=== PATIENT | male | born 1940 | race Caucasian/White ===

== ENCOUNTER 2024-09-02 08:18 | Day surgery (SDC) | payer MEDICARE, SELFPAY ==
[2024-08-28 14:55] VITALS: BMI 27.8
[2024-09-02] VITALS (8 sets, daily range): BP systolic 126–156; BP diastolic 80–96; PULSE 77–110; RESP 10–93; TEMP 36.3–36.8; O2SAT 4–95; BMI 27.8
[2024-09-02] MEDS: ACETAMINOPHEN 325 MG TABLET 650 MG PO (09:15)
[2024-09-02] MEDS: LACTATED RINGERS 1,000 ML 42 ML IV (09:16)
--- NOTE | 2024-09-02 09:48 | PM.HP.1 ---
History of Present Illness History of Present Illness Date Patient Seen: 08/26/24 Time Patient Seen: 09:49 Chief complaint: Open umbilical hernia repair w/mesh Narrative: Aleksey is an 84-year-old man with a symptomatic umbilical hernia. See the prior office notes for details. [facility] Medical History (Updated 08/28/24 @ 15:25 by Irasema Durbin RN) History of COVID-19 (07/09/24) Vertigo Unspecified hearing loss, bilateral Hypoglycemia, unspecified Insomnia Personal history of tuberculosis Hyperlipemia Benign prostatic hyperplasia without lower urinary tract symptoms Spinal stenosis (1979) Surgical History (Updated 08/28/24 @ 15:23 by Irasema Durbin RN) Hx of hernia repair Social History household members: spouse Smoking Status: Never smoker alcohol intake: former Meds Home Medications and Allergies Home Medications Medication Instructions Recorded Confirmed Type cholecalciferol (vitamin D3) 25 25 mcg PO DAILY 07/10/22 07/02/24 History mcg (1,000 unit) capsule vitamin A palmitate 7,500 mcg 7,500 mcg PO DAILY 07/10/22 07/02/24 History (25,000 unit) capsule vitamin E mixed 100 unit tablet 100 unit PO DAILY 07/10/22 07/02/24 History zolpidem 10 mg tablet 5 mg PO BEDTIME 07/10/22 09/02/24 History metronidazole 0.75 % topical gel 1 applic topical BEDTIME 07/02/24 07/02/24 History Allergies Allergy/AdvReac Type Severity Reaction Status Date / Time prednisone Allergy Verified 09/02/24 08:45 Exam Vital Signs (past 8 hours): - 09/02/24 09:09 Temperature 98.3 F Pulse Rate 105 H Respiratory Rate 10 L Blood Pressure 153/96 H Pulse Oximetry 94 Oxygen Delivery Method Room Air Oxygen Delivery Method Room Air Const General: No acute distress Assessment & Plan Assessment and plan (1) Umbilical hernia without mention of obstruction or gangrene: Qualifiers: Obstruction and gangrene presence: without obstruction or gangrene Qualified Code(s): K42.9 - Umbilical hernia without obstruction or gangrene Status: Acute Plan Open umbilical hernia repair with mesh Time-Based Coding :: [TOTAL MINUTES] spent with patient and on the chart (including review of chart, obtaining history, exam, reviewing outside data, placing orders, documenting exam and treatment plan, and counseling patient) on [DATE].
--- NOTE | 2024-09-02 09:57 | SUR.OPER ---
Supine on padded OR bed, head on pillow, arms secured on padded arm boards at <90 degrees abduction, legs uncrossed, safety belt at thigh, tape over blanket over lower legs.
[2024-09-02] MEDS: CEFAZOLIN 2 GM/100 ML PREMIX 100 ML IV (10:20)
[2024-09-02] MEDS: BUPIVACAINE 0.5% W/ EPI (PF) 30 ML VIAL INJ (10:28)
--- NOTE | 2024-09-02 11:21 | PM.OP.1 ---
Operative Date/Time/Diagnoses Date of procedure: 09/02/24 Time of procedure: 11:22 Pre-op diagnosis: Umbilical hernia Post-op diagnosis: same Procedure & Clinicians Procedure: Open umbilical hernia repair with mesh Same procedure as scheduled: Yes Surgeon: Kev Durand Anesthesia Type: General Operative Notes Procedure in detail: Ancef was administered. The patient was brought to the operating room, placed on the table in the supine position and general anesthesia was induced. The abdomen was prepped and draped in the usual fashion. A time-out was performed. A 6 cm curvilinear incision was made inferior to the umbilicus. The hernia sac was dissected free from the surrounding subcutaneous adipose tissue and off the umbilical skin using a combination of cautery, sharp and blunt dissection. The hernia sac was dissected free from the fascial ring and allowed to drop back down into the abdomen. The fascial defect was about 4 cm in diameter. The fascial edge was cleared of fibrofatty tissue. The fascia was then closed transversely with multiple interrupted 0 Ethibond sutures. The subcutaneous adipose tissue was cleared off of the anterior sheath circumferentially about 2 cm in each direction. A piece of polypropylene mesh was trimmed to fit over the fascial closure and secured with Tisseel. Once the Tisseel was dried the umbilical skin was tacked down to the mesh with a single 3-0 Vicryl stitch. The skin was closed with multiple interrupted 3-0 Vicryl dermal sutures followed by a running 4 Monocryl subcuticular closure. Steri-Strips were applied followed by gauze and tape. EBL: 10 mL Post-operative Condition: stable Disposition: PACU
[2024-09-02] MEDS: OXYCODONE IR 5 MG TABLET PO (11:35)
== END 2024-09-02 13:01 | disposition home or self-care (01) ==
PROVIDERS: PCP Family Medicine; Referring Provider Surgery; Visit Provider Surgery
PROC: (CPT 49593; principal; 2024-09-02 09:45)
DX: K42.9 Umbilical hernia without obstruction or gangrene (principal)
CPT/HCPCS: 49593; C1781; J0690; J1100; J2405; J2704; J3010